=== PATIENT | male | born 1995 | race Caucasian/White ===

== ENCOUNTER 2025-04-29 18:39 | Emergency (ER) | payer OTHER ==
[~2025-04-29] VITALS: Ht 175.3 cm; Wt 85.0 kg
[2025-04-29] MEDS ORDERED: AMOX TR-K CLV1 EAC1 PO (20:50)
[2025-04-29] MEDS ORDERED: HYDROCODON-ACE1 EA10 PO (20:50)
[2025-04-29] MEDS ORDERED: HYDROCODONE BIT/ACETAMINOPHEN 5/325 MG 1 TAB HOME.PACK PO PRN (21:00)
[2025-04-29] MEDS ORDERED: AMOXICILLIN/CLAVULANATE K 875 MG HOME.PACK PO ONE (21:00)
[2025-04-29 21:54] VITALS: BP 135/64
== END 2025-04-29 21:54 | disposition home or self-care (01) ==
LOC: ED 18:39
DX: S61.452A Open bite of left hand, initial encounter (principal); W54.0XXA Bitten by dog, initial encounter
CPT/HCPCS: 12002; 99283; A9270